=== PATIENT | male | born 1965 | race Caucasian/White ===

== ENCOUNTER 2017-12-11 18:14 | Emergency (ER) | payer MEDICARE, MEDICAID ==
[2017-12-11 20:17] VITALS: BP 176/92
--- NOTE | 2017-12-11 20:21 | UC ---
Knee Pain HPI - History of Current Complaint Pain Intensity: 9 <ChaparroKristan - Last Filed: 12/11/17 20:21> - HPI Summary HPI Summary: PT IS C/O A 5 DAY HX SWELLING TO LEFT KNEE WITH PAIN TO THE INSIDE. HE DENIES ANY HX OF INJURY. NO FEVER. - History of Current Complaint Hx Obtained From: Patient Onset/Duration: Gradual Onset Aggravating Factor(s): Movement Associated Signs And Symptoms: Positive: Swelling. Negative: Redness, Fever, Numbness, Tingling Able to Bear Weight: Yes - Risk Factors Septic Arthritis Risk Factor: Negative <Tegan Ng - Last Filed: 12/11/17 21:31> - History of Current Complaint Chief Complaint: UCLowerExtremity Stated Complaint: LEFT KNEE COMPLAINT Time Seen by Provider: 12/11/17 20:20 - Allergies/Home Medications Allergies/Adverse Reactions: Allergies Allergy/AdvReac Type Severity Reaction Status Date / Time No Known Allergies Allergy Verified 12/11/17 20:18 Home Medications: Home Medications ALPRAZolam TAB* [Xanax TAB*] 0.25 mg PO TID PRN 12/11/17 [History Confirmed ] Hydrocodone/Acetaminophen [Vicodin 5-300 mg Tablet] 1 each PO BID 12/11/17 [ History Confirmed 12/11/17] Naproxen 375 mg PO DAILY 12/11/17 [History Confirmed 12/11/17] PMH/Surg Hx/FS Hx/Imm Hx - Surgical History Surgical History: Yes Surgery Procedure, Year, and Place: 2 back surgeries. [facility]. Gallbladder. carpel tunnel surgery right hand - Social History Alcohol Use: Occasionally Substance Use Type: None Smoking Status (MU): Never Smoked Tobacco <ChaparroKristan - Last Filed: 12/11/17 20:21> - Additional Past Medical History Additional PMH: BACK PAIN WITH SURGERY. R KNEE ARTHRITIS - Social History Occupation: Disabled Lives: With Family - Immunization History Vaccination Up to Date: Yes <Tegan Ng - Last Filed: 12/11/17 21:31> Review of Systems Constitutional: Negative Skin: Negative Eyes: Negative ENT: Negative Respiratory: Negative Cardiovascular: Negative Gastrointestinal: Negative Genitourinary: Negative Motor: Negative Neurovascular: Negative Musculoskeletal: Other: - PAIN L MEDIAL KNEE WITH SWELLING. CHRONIC BACK PAIN Neurological: Negative Psychological: Negative Is Patient Immunocompromised?: No All Other Systems Reviewed And Are Negative: Yes <Tegan Ng - Last Filed: 12/11/17 21:31> Physical Exam Vital Signs: Initial Vital Signs Temp 98 F 12/11/17 20:11 Pulse 87 12/11/17 20:11 Resp 19 12/11/17 20:11 BP 176/92 12/11/17 20:11 Pulse Ox 99 12/11/17 20:11 <Kristan Mayfield - Last Filed: 12/11/17 20:21> Triage Information Reviewed: Yes Appearance: Well-Appearing Vital Signs: Initial Vital Signs Temp 98 F 12/11/17 20:11 Pulse 87 12/11/17 20:11 Resp 19 12/11/17 20:11 BP 176/92 12/11/17 20:11 Pulse Ox 99 12/11/17 20:11 Vital Signs Reviewed: Yes Eyes: Positive: Conjunctiva Clear ENT: Positive: Normal ENT inspection Neck: Positive: Supple, Nontender, No Lymphadenopathy Respiratory: Positive: Lungs clear, Normal breath sounds Cardiovascular: Positive: RRR, No Murmur, Pulses Normal Abdomen Description: Positive: Nontender, No Organomegaly, Soft Bowel Sounds: Positive: Present Musculoskeletal: Positive: Other: - LLL: varicose veins. knee with mild swelling. tender to medial knee. no laxity to the joint. geberalized tenderness on medial side. not red or warm. active and passive rom intact. s/v/m intact to foot. calf non tender. <Tegan Ng - Last Filed: 12/11/17 21:31> Diagnostics - Radiology No standard instances Radiology Interpretation Completed By: Radiologist - OA, effusion <Tegan Ng - Last Filed: 12/11/17 21:31> Knee Pain Course/Dx - Course Course Of Treatment: no concern for infection, no fx. mild OA and effsuion. casimiro , resume nsaid, cruthches and f/u with his orthopedist. - Differential Dx/Diagnosis Provider Diagnoses: L knee effusion. L knee pain(medial) <Tegan Ng - Last Filed: 12/11/17 21:31> Discharge <Kristan Mayfield - Last Filed: 12/11/17 20:21> - Sign-Out/Discharge Documenting (check all that apply): Discharge - Billing Disposition and Condition Condition: STABLE Disposition: HOME <Tegan Ng - Last Filed: 12/11/17 21:31> - Discharge Plan Condition: Stable Disposition: HOME Patient Education Materials: Swollen Knee Joint (ED), Knee Pain (ED) Referrals: Anahi Camarena, MEDIA/INSTRUCTIONAL DESIGNER [Primary Care Provider] - If Needed Additional Instructions: USE CRUTCHES AND WEAR CASIMIRO DURING THE DAY BUT REMOVE AT BEDTIME. CONTINUE YOUR ANTI-INFLAMMATORY MEDICATION. CALL DR PORFIRIO MELCHOR, YOUR ORTHOPEDIST IN AM FOR FOLLOW UP SOON POSSIBLE
--- NOTE | 2017-12-11 20:57 | RAD ---
INDICATION: Left knee pain and swelling. TECHNIQUE: 4 views of the left knee were obtained. FINDINGS: The bones are normal alignment. There is a joint effusion present no fracture is seen. There is mild osteoarthritic change in the patellofemoral compartment. IMPRESSION: 1. JOINT EFFUSION. 2. MILD OSTEOARTHRITIC CHANGE.
== END 2017-12-11 21:43 | disposition home or self-care (01) ==
LOC: UCCORT 18:14
DX: M25.462 Effusion, left knee (principal); M25.562 Pain in left knee; M13.861 Other specified arthritis, right knee; M54.9 Dorsalgia, unspecified; I83.92 Asymptomatic varicose veins of left lower extremity; G89.29 Other chronic pain; Z98.890 Other specified postprocedural states
CPT/HCPCS: 99203; G0463